=== PATIENT | female | born 1965 | race Two or more races ===

== ENCOUNTER 2020-03-13 15:56 | Emergency (ER) | payer MEDICAID ==
[~2020-03-13] VITALS: Ht 157.5 cm; Wt 90.7 kg
[2020-03-13 16:21] VITALS: Ht 157.5 cm; Wt 90.7 kg
[2020-03-13 18:00] LABS: BASOPHIL % 0.2 % (0-2); PLATELET COUNT 213 x10^3mcL (130-400); RED CELL DISTRIBUTION WIDTH 17.5 % (11.5-14.5)
[2020-03-13 18:08] LABS: CALCIUM 8.8 mg/dL (8.5-10.1); CARBON DIOXIDE 22.8 mmol/L (21-32); CREATININE SERUM 2.2 mg/dL (0.6-1.0); POTASSIUM SERUM 4.1 mmol/L (3.5-5.1)
[2020-03-13 18:13] LABS: BILIRUBIN TOTAL 0.3 mg/dL (0.20-1.00); C REACTIVE PROTEIN 6.5 mg/dL (<=0.9); TOTAL PROTEIN, SERUM 7.7 g/dL (6.4-8.2)
[2020-03-13 18:14] LABS: ALBUMIN 3.3 g/dL (3.4-5.0)
[2020-03-13 18:47] LABS: ERYTHROCYTE SED RATE 80 mm/hr (0-30)
[2020-03-13 18:59] VITALS: BP 193/76
== END 2020-03-13 18:59 | disposition home or self-care (01) ==
LOC: ED 15:56
PROVIDERS: Emergency Medicine
DX: S91.301A Unspecified open wound, right foot, initial encounter (principal); E11.22 Type 2 diabetes mellitus with diabetic chronic kidney disease; I12.9 Hypertensive chronic kidney disease with stage 1 through stage 4 chronic kidney disease, or unspecified chronic kidney disease; N18.9 Chronic kidney disease, unspecified; R68.83 Chills (without fever); Z88.0 Allergy status to penicillin; Z89.431 Acquired absence of right foot; X58.XXXA Exposure to other specified factors, initial encounter; Y93.89 Activity, other specified; Y92.89 Other specified places as the place of occurrence of the external cause; Y99.8 Other external cause status
CPT/HCPCS: Q0162

== ENCOUNTER 2020-03-30 20:40 | Emergency (ER) | payer MEDICAID ==
[~2020-03-30] VITALS: Ht 157.5 cm; Wt 90.3 kg
[2020-03-30 21:07] VITALS: Ht 157.5 cm; Wt 90.3 kg
[2020-03-30 23:30] LABS: BASOPHIL % 0.5 % (0-2); PLATELET COUNT 291 x10^3mcL (130-400); RED CELL DISTRIBUTION WIDTH 17.7 % (11.5-14.5)
[2020-03-30 23:45] LABS: CALCIUM 8.7 mg/dL (8.5-10.1); CARBON DIOXIDE 21.5 mmol/L (21-32); CREATININE SERUM 2.7 mg/dL (0.6-1.0); POTASSIUM SERUM 4.2 mmol/L (3.5-5.1)
[2020-03-30 23:49] LABS: BILIRUBIN TOTAL 0.29 mg/dL (0.20-1.00); TOTAL PROTEIN, SERUM 8.1 g/dL (6.4-8.2)
[2020-03-30 23:53] LABS: ALBUMIN 3.1 g/dL (3.4-5.0)
[2020-03-31 02:07] VITALS: BP 181/75
== END 2020-03-31 02:07 | disposition home or self-care (01) ==
LOC: ED 20:40
PROVIDERS: Student in an Organized Health Care Education/Training Program
DX: L03.115 Cellulitis of right lower limb (principal); I10 Essential (primary) hypertension; E11.9 Type 2 diabetes mellitus without complications; Z88.0 Allergy status to penicillin
CPT/HCPCS: J2270; J2405; J7030; Q0092